=== PATIENT | male | born 2000 | race Caucasian/White ===

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

== ENCOUNTER 2018-11-23 13:08 | Emergency (ER) | payer OTHER ==
--- NOTE | 2018-11-23 13:10 | UC ---
Eye Complaint HPI - HPI Summary HPI Summary: 17 yo male presents with b/l eye redness and drainage. He tells me that 3 days ago he developed right eye redness and yellow crusting. He stopped wearing his contacts and thought maybe it was allergies or irritation. Since that time his symptoms have continued and are now present in his left eye as well. He is feeling well otherwise and denies fever, chills, sinus symptoms, sore throat, rash, vision changes. - History of Current Complaint Stated Complaint: EYE ISSUES Time Seen by Provider: 11/23/18 13:09 Hx Obtained From: Patient Onset/Duration: Gradual Onset Severity Currently: None - Allergies/Home Medications Allergies/Adverse Reactions: Allergies Allergy/AdvReac Type Severity Reaction Status Date / Time No Known Allergies Allergy Verified 11/23/18 13:17 PMH/Surg Hx/FS Hx/Imm Hx - Additional Past Medical History Additional PMH: None - Surgical History Surgical History: Yes Surgery Procedure, Year, and Place: repair complex forearm fracture 2003 - Family History Known Family History: Positive: Hypertension - Social History Occupation: Student Alcohol Use: Occasionally Substance Use Type: None Smoking Status (MU): Never Smoked Tobacco - Immunization History Most Recent Influenza Vaccination: Fall 2016 Vaccination Up to Date: Yes Review of Systems All Other Systems Reviewed And Are Negative: Yes Constitutional: Positive: Negative Skin: Positive: Negative Eyes: Positive: Drainage, Eye Redness ENT: Positive: Negative Respiratory: Positive: Negative Cardiovascular: Positive: Negative Neurovascular: Positive: Negative Neurological: Positive: Negative Psychological: Positive: Negative Physical Exam - Summary Physical Exam Summary: GENERAL: WDWN. No pain distress. SKIN: No rashes, sores, lesions, or open wounds. HEENT: Head: AT/NC Eyes: EOM intact. PERRLA. B/L EYES: Mild scleral injection. Conjunctiva with mild erythema and inflammation. Mild yellow discharge. Nose: NTTP maxillary and frontal sinus. NECK: Supple. Nontender. No lymphadenopathy. CHEST: No accessory muscle use. Breathing comfortably and in no distress. CV: Pulses intact. Cap refill <2seconds NEURO: Alert. PSYCH: Age appropriate behavior. Triage Information Reviewed: Yes Vital Signs: Vital Signs: Temp Pulse Resp BP Pulse Ox 98.4 F 79 16 121/60 100 11/23/18 13:15 11/23/18 13:15 11/23/18 13:15 11/23/18 13:15 11/23/18 13:15 Vital Signs Reviewed: Yes Eye Complaint Course/Dx - Course Course Of Treatment: B/L conjunctivitis. Will start him on ofloxacin given contact use. Advised to not use contacts until infection clears and to open a new pair when resolved. - Differential Dx/Diagnosis Provider Diagnosis: Bilateral conjunctivitis Discharge - Sign-Out/Discharge Documenting (check all that apply): Patient Departure All imaging exams completed and their final reports reviewed: No Studies - Discharge Plan Condition: Stable Disposition: HOME Prescriptions: Ofloxacin 0.3% (Eye Drop) [Ocuflox OPTH 0.3% (Eye Drop)] 1 drop BOTH EYES TID # 1 btl Patient Education Materials: Conjunctivitis (ED) Referrals: Alpesh Son MD [Primary Care Provider] - Additional Instructions: If you develop a fever, shortness of breath, chest pain, new or worsening symptoms - please call your PCP or go to the ED immediately. Do not wear your contacts until your eye infections have cleared. - Billing Disposition and Condition Condition: STABLE Disposition: Home
[2018-11-23 13:35] VITALS: BP 121/60
== END 2018-11-23 13:23 | disposition home or self-care (01) ==
LOC: UCEAST 13:08
DX: H10.33 Unspecified acute conjunctivitis, bilateral (principal)
CPT/HCPCS: 99212; G0463

== ENCOUNTER 2018-12-11 13:10 | Emergency (ER) | payer OTHER ==
[2018-12-11 13:17] VITALS: BP 118/63
--- NOTE | 2018-12-11 13:45 | UC ---
Eye Complaint HPI - HPI Summary HPI Summary: eye irritation on/off for 2 weeks did complete a course of oflox gtts--used new contacts and symptoms returned----mild injection both eye---no visual deficits- does have environmental allergies and using claritin - History of Current Complaint Chief Complaint: UCEye Stated Complaint: EYE IRRITATION Time Seen by Provider: 12/11/18 13:43 Hx Obtained From: Patient Onset/Duration: Gradual Onset, Lasting Weeks - 2, Still Present Timing: Constant Pain Intensity: 0 Pain Scale Used: 0-10 Numeric Location of Injury: Conjunctiva Aggravating Factor(s): Contact Lens Alleviating Factor(s): Nothing Associated Signs And Symptoms: Positive: Negative - Allergies/Home Medications Allergies/Adverse Reactions: Allergies Allergy/AdvReac Type Severity Reaction Status Date / Time No Known Allergies Allergy Verified 12/11/18 13:17 PMH/Surg Hx/FS Hx/Imm Hx Previously Healthy: Yes - Surgical History Surgical History: Yes Surgery Procedure, Year, and Place: repair complex forearm fracture 2003 - Family History Known Family History: Positive: Hypertension - Social History Occupation: Student Lives: With Family Alcohol Use: Occasionally Substance Use Type: None Smoking Status (MU): Never Smoked Tobacco - Immunization History Most Recent Influenza Vaccination: Fall 2016 Vaccination Up to Date: Yes Review of Systems All Other Systems Reviewed And Are Negative: Yes Constitutional: Positive: Negative Skin: Positive: Negative Eyes: Positive: Eye Redness ENT: Positive: Negative Respiratory: Positive: Negative Cardiovascular: Positive: Negative Gastrointestinal: Positive: Negative Genitourinary: Positive: Negative Motor: Positive: Negative Neurovascular: Positive: Negative Musculoskeletal: Positive: Negative Neurological: Positive: Negative Psychological: Positive: Negative Is Patient Immunocompromised?: No Physical Exam Triage Information Reviewed: Yes Appearance: Well-Appearing, No Pain Distress, Well-Nourished Vital Signs: Initial Vital Signs Temp 99.1 F 12/11/18 13:14 Pulse 73 12/11/18 13:14 Resp 18 12/11/18 13:14 BP 118/63 12/11/18 13:14 Pulse Ox 99 12/11/18 13:14 Vital Signs Reviewed: Yes Eye Exam: Normal Eyes: Positive: Conjunctiva Inflamed - mild. Negative: Discharge ENT Exam: Normal ENT: Positive: Normal ENT inspection, Hearing grossly normal, Pharynx normal, TMs normal. Negative: Nasal congestion, Trismus, Muffled voice, Hoarse voice, Dental tenderness, Sinus tenderness Neck exam: Normal Neck: Positive: Supple Respiratory Exam: Normal Respiratory: Positive: Chest non-tender, No respiratory distress, No accessory muscle use Cardiovascular Exam: Normal Cardiovascular: Positive: RRR, Pulses Normal, Brisk Capillary Refill Musculoskeletal Exam: Normal Musculoskeletal: Positive: Strength Intact, ROM Intact, No Edema Neurological Exam: Normal Neurological: Positive: Alert, Muscle Tone Normal Psychological Exam: Normal Skin Exam: Normal Eye Complaint Course/Dx - Course Course Of Treatment: keep contacts out---use antibiotic eye drops until seen by Dr. Ochoa in next 1-2 days continue claritin - Differential Dx/Diagnosis Provider Diagnosis: Acute conjunctivitis Discharge - Sign-Out/Discharge Documenting (check all that apply): Patient Departure All imaging exams completed and their final reports reviewed: No Studies - Discharge Plan Condition: Stable Disposition: HOME Prescriptions: Ciprofloxacin 0.3% OPTH.RANDY* [Cipro 0.3% Opth*] 2 drop BOTH EYES Q2H #1 btl Patient Education Materials: Conjunctivitis (ED) Referrals: Marco Ochoa MD [Medical Doctor] - 1 Day Additional Instructions: Do not use contacts untilled cleared by eye doctor----continue with Claritin-- - Billing Disposition and Condition Condition: STABLE Disposition: Home - Attestation Statements Provider Attestation: I was available for consult. This patient was seen by the HERNANDEZ. The patient was not presented to, seen by, or examined by me. -Julianna
== END 2018-12-11 14:10 | disposition home or self-care (01) ==
LOC: UCEAST 13:10
DX: H10.33 Unspecified acute conjunctivitis, bilateral (principal)
CPT/HCPCS: 99212; G0463